=== PATIENT | female | born 1950 | race Caucasian/White ===

== ENCOUNTER 2025-05-17 09:44 | Outpatient (CLI) | payer MEDICARE ==
[2025-05-17 11:18] LABS: Estimated GFR - POC 77.0
== END 2025-05-17 09:45 | disposition home or self-care (01) ==
LOC: CSHMRI 09:44
PROVIDERS: ATTEND Surgery
DX: N64.52 Nipple discharge (principal)
CPT/HCPCS: 36415; 82565 ×2; C8908